=== PATIENT | male | born 1965 | race Caucasian/White ===

== ENCOUNTER 2017-09-28 14:14 | Emergency (ER) | payer OTHER ==
[~2017-09-28] VITALS: Ht 175.3 cm; Wt 107.7 kg
[2017-09-28 14:42] VITALS: Ht 175.3 cm; Wt 107.7 kg
[2017-09-28 16:38] VITALS: BP 146/82
== END 2017-09-28 16:37 | disposition home or self-care (01) ==
LOC: ED 14:14
DX: J98.01 Acute bronchospasm (principal); H10.9 Unspecified conjunctivitis; E11.9 Type 2 diabetes mellitus without complications; I10 Essential (primary) hypertension; E78.00 Pure hypercholesterolemia, unspecified
CPT/HCPCS: 82962; J2930; J7613; J7644

== ENCOUNTER 2017-11-23 21:48 | Emergency (ER) | payer OTHER ==
[~2017-11-23] VITALS: Ht 175.3 cm; Wt 108.0 kg
[2017-11-23 21:57] VITALS: Ht 175.3 cm; Wt 108.0 kg
[2017-11-24 00:42] VITALS: BP 113/73
== END 2017-11-24 00:42 | disposition home or self-care (01) ==
LOC: ED 21:48
DX: M54.5 Low back pain (principal); I10 Essential (primary) hypertension; E11.9 Type 2 diabetes mellitus without complications; E78.00 Pure hypercholesterolemia, unspecified